=== PATIENT | female | born 2000 | race Caucasian/White ===

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

== ENCOUNTER 2019-05-25 13:39 | Emergency (ER) | payer BC, MEDICAID ==
[~2019-05-25] VITALS: Ht 175.3 cm; Wt 93.2 kg
[2019-05-25 13:42] VITALS: TEMP 98.4
[2019-05-25 14:31] LABS: COLLECTION METHOD CLEAN CATCH
[2019-05-25 14:36] LABS: BASO % 0.2 % (0.0-2.0); EOS % 0.2 % (0-4.0); GRAN # 10.9 (1.4-6.5); GRAN % 84.4 % (42.2-75.2); HEMATOCRIT 37.9 % (35.0-45.0); HEMOGLOBIN 12.6 g/dl (12.0-15.0); LYMPH # 1.1 (1.2-3.4); LYMPH % 8.8 % (20.0-51.0); MEAN CELL VOLUME 92 fl (80.0-95.0); MEAN CORPUSCULAR HEMOGLOBIN 31 pg (26.0-32.0); MEAN CORPUSCULAR HGB CONC 33 g/dl (33.0-37.0); MEAN PLATELET VOLUME 10.8 fl (7.4-10.4); MONO # 0.8 (0.1-0.6); MONO % 5.9 % (1.7-9.3); PLATELET COUNT 206 K/mm3 (130-400); RED BLOOD COUNT 4.12 M/mm3 (4.10-5.30); REDCELL DISTRIBUTION WIDTH-CV 13.2 % (11.5-14.5)
[2019-05-25 14:44] LABS: ALBUMIN 4.3 gm/dL (3.5-5.0); BILIRUBIN,TOTAL 0.5 mg/dL (0.0-1.0); CREATININE, serum 0.62 (0.52-1.25); POTASSIUM 3.5 mmol/L (3.4-5.0); TOTAL PROTEIN 7.5 gm/dL (6.4-8.2)
[2019-05-25 14:44] LABS: MUCOUS Present /lpf; PH 5 (5-8); URINE APPEARANCE Clear; URINE BACTERIA None Seen /hpf; URINE BILIRUBIN Negative (NEGATIVE); URINE BLOOD Negative (NEGATIVE); URINE COLOR Yellow; URINE GLUCOSE Negative (NEGATIVE); URINE KETONE 2+ (NEGATIVE); URINE LEUKOCYTE ESTERASE Negative (NEGATIVE); URINE NITRATE Negative (NEGATIVE); URINE PROTEIN(semi-quant) Negative (NEGATIVE); URINE RBC 0-2 /hpf; URINE UROBILINOGEN Negative (NEGATIVE)
[2019-05-25 14:57] LABS: STREP SCREEN NEGATIVE
[2019-05-25 15:49] VITALS: BP 118/78; PULSE 85
== END 2019-05-25 15:50 | disposition home or self-care (01) ==
LOC: COL.ER 13:39
PROVIDERS: Physician Assistant
DX: R10.84 Generalized abdominal pain (principal); G43.909 Migraine, unspecified, not intractable, without status migrainosus; J45.909 Unspecified asthma, uncomplicated; Z88.0 Allergy status to penicillin
CPT/HCPCS: J2405; J7030

== ENCOUNTER 2019-08-13 22:02 | Emergency (ER) | payer BC, MEDICAID ==
[~2019-08-13] VITALS: Ht 175.3 cm; Wt 98.6 kg
[2019-08-13 22:07] VITALS: TEMP 98.1
[2019-08-13] MEDS ORDERED: VITAMIN B100 CO1 TAB (22:24)
[2019-08-13] MEDS ORDERED: VITAMINC1000TA (22:24)
[2019-08-13] MEDS ORDERED: B-12 500 MCG PO (22:24)
[2019-08-13 22:29] VITALS: BP 114/85
[2019-08-13] MEDS ORDERED: CLEOCIN HCL300 MG PO (23:40)
[2019-08-13 23:49] VITALS: PULSE 108
== END 2019-08-13 23:53 | disposition home or self-care (01) ==
LOC: COL.ER 22:02
DX: O23.593 Infection of other part of genital tract in pregnancy, third trimester (principal); K61.0 Anal abscess; O99.513 Diseases of the respiratory system complicating pregnancy, third trimester; J45.909 Unspecified asthma, uncomplicated; Z88.0 Allergy status to penicillin; Z3A.32 32 weeks gestation of pregnancy

== ENCOUNTER 2019-09-04 12:44 | Outpatient (CLI) | payer BC, MEDICAID ==
[~2019-09-04] VITALS: Ht 175.3 cm; Wt 100.9 kg
[~2019-09-04 12:44] MED LIST changes: +B-12 500 MCG PO; +CLEOCIN HCL300 MG PO; +VITAMIN B100 CO1 TAB; +VITAMINC1000TA
--- NOTE | 2019-09-04 13:20 | NUR ---
PATIENT TO LR 5 AT THIS TIME. ON EFM, PATIENT STATES SHE FELL YESTERDAY ON KNEES, HAS NOT FELT OR HEARD BABY MOVE BY USING STETHESCOPE AT HOME. PATIENTS PULSE 120S-130S DR CAMPO NOTIFIED. PATIENT HAS PULSE OX ON FINGER. PATIENT DENIES LEAKING OF FLUID, BLEEDING OR CONTRACTIONS. FABIEN SNOW WITH PATIENT.
[2019-09-04 13:25] VITALS: BP 138/79; PULSE 133; TEMP 98.8
[2019-09-04 13:50] VITALS: BP 138/79; PULSE 133; TEMP 98.8
== END 2019-09-04 13:57 | disposition home or self-care (01) ==
LOC: LDRO 12:44 → LDR 13:28 → LDRO 13:28 → LDR 13:57
DX: O36.8130 Decreased fetal movements, third trimester, not applicable or unspecified (principal); Z3A.34 34 weeks gestation of pregnancy
CPT/HCPCS: OP

== ENCOUNTER 2019-10-07 20:00 | Outpatient (CLI) | payer BC, MEDICAID ==
[~2019-10-07] VITALS: Ht 175.3 cm; Wt 101.8 kg
--- NOTE | 2019-10-07 18:45 | NUR ---
Pt ambulatory to unit for assessment, accompanied by boyfriend. Pt reports "I think my water has been leaking for 15 hours" Oriented to room, monitor, plan of care. Questions invited and answered.
[2019-10-07 19:40] VITALS: BP 134/84; PULSE 84; TEMP 98.7
[2019-10-07 20:20] VITALS: TEMP 98.7
== END 2019-10-07 20:55 | disposition home or self-care (01) ==
LOC: LDRO 20:00
DX: O42.92 Full-term premature rupture of membranes, unspecified as to length of time between rupture and onset of labor (principal); Z3A.39 39 weeks gestation of pregnancy

== ENCOUNTER 2019-10-19 15:44 | Inpatient (IN) | payer BC, MEDICAID ==
[~2019-10-19] VITALS: Ht 175.3 cm; Wt 103.6 kg
[2019-10-19] VITALS (22 sets, daily range): BP systolic 117–133; BP diastolic 63–84; PULSE 64–90; TEMP 98.5–98.9
--- NOTE | 2019-10-19 16:45 | NUR ---
PT HERE FOR INDUCTION OF LABOR. FHT'S FOUND IN THE 135-140 RANGE WITH MODERATE VARIABILITY AND ACCELS. IV STARTED IN RIGHT WRIST WITH LR INFUSING WITHOUT DIFFICULT. PITOCIN STARTED AT 1625 AT 2MU PER ORDERS. PLAN OF CARE REVIEWED. CONSENTS SIGNED. PT REPORTS SHE DOES NOT WANT AN EPIDURAL FOR ANY REASON AT ALL. 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 ALSO REFUSES A SPINAL. EXPLAINED TO PT IF SHE NEEDS A IT WOULD HAVE TO BE UNDER GENERAL ANESTHESIA AND SHE STATES THAT A SPINAL WOULD NOT WORK ON HER BECAUSE "NO LOCAL MEDICATION WORKS, IT HAS THE OPPOSITE EFFECT ON ME CAUSING WORSE PAIN." WANTS TO EAT AND EXPLAINED SHE IS NPO ESPECIALLY WITH THE NEED FOR GENERAL ANESTHESIA IF A IS NEEDED. TOLD HER SHE CAN HAVE SMALL SIPS OF CLEAR LIQUIDS ONLY. ASSESSMENT COMPLETED.
--- NOTE | 2019-10-19 17:15 | NUR ---
DR RICCI CALLED TO CHECK ON PT. UPDATE GIVEN: IV STARTED, PITOCIN AT 6MU AT TIME OF CALL. SHE IS COMING OVER TO BREAK PT'S WATER. PT NOTIFIED. APPLE JUICE GIVEN TO PT.
[2019-10-19 17:23] LABS: BASO % 0.2 % (0.0-2.0); EOS % 0.3 % (0-4.0); GRAN # 8.1 (1.4-6.5); GRAN % 70.5 % (42.2-75.2); HEMATOCRIT 39.2 % (35.0-45.0); HEMOGLOBIN 13.1 g/dl (12.0-15.0); LYMPH # 2.6 (1.2-3.4); LYMPH % 22.4 % (20.0-51.0); MEAN CELL VOLUME 91 fl (80.0-95.0); MEAN CORPUSCULAR HEMOGLOBIN 30 pg (26.0-32.0); MEAN CORPUSCULAR HGB CONC 33 g/dl (33.0-37.0); MEAN PLATELET VOLUME 11.1 fl (7.4-10.4); MONO # 0.7 (0.1-0.6); MONO % 6.2 % (1.7-9.3); PLATELET COUNT 254 K/mm3 (130-400); RED BLOOD COUNT 4.33 M/mm3 (4.10-5.30)
--- NOTE | 2019-10-19 18:00 | NUR ---
DR RICCI HERE AT 1754. PERFORMS SVE /-2 AND AROM WITH CLEAR FLUID AT 1755. PT AGAIN TELLS DR RICCI SHE WILL NOT DO AN EPIDURAL FOR PAIN RELIEF. FHT'S WITH BASELINE CHANGE TO 135 AT 1748 AND ANOTHER CHANGE AT 1756 AFTER AROM BACK TO PREVIOUS BASELINE OF 145
--- NOTE | 2019-10-19 18:20 | NUR ---
Standing @ bedside, asks "can I stay out of the bed?" Explained to pt that we need to be able to monitor the baby. If we can keep a decent tracing on the baby , she could stand @ bedside or use the birthing ball. Birthing ball provided.
--- NOTE | 2019-10-19 19:10 | NUR ---
Pt standing at bedside, leaning forward on bed, shifting from side to side, crying. Encouraged to slow breathing down, tried coaching to pattern breathe. Mother supportive at bedside, also trying to work with pt. Discussed IV pain medication. Requests IV pain medication @ this time.
--- NOTE | 2019-10-19 19:17 | NUR ---
0.5mg Stadol, slow IV push, per pt request for pain. 192 0.5mg Stadol for continued pain, Pt crying. 100cc emesis.
--- NOTE | 2019-10-19 20:02 | NUR ---
Sangeeta INSURANCE VERIFICATION SPECIALIST into room for epidural placement, see anesthesia record.
[2019-10-20] VITALS (19 sets, daily range): BP systolic 111–134; BP diastolic 58–77; PULSE 58–91; TEMP 97.7–98.3
--- NOTE | 2019-10-20 01:44 | NUR ---
FHT'S TO 100'S, position changes, IV fluids, SVE Rim. FHT's to 120's. Deceleration time 5 minutes.
--- NOTE | 2019-10-20 02:25 | NUR ---
Dr Dao into room. SVE, pushing instructions given.
--- NOTE | 2019-10-20 03:00 | NUR ---
Pushing well. FHT's to 90's with pushing returns to baseline after contraction/pushing. Dr Dao continues in room, coaches pushing.
--- NOTE | 2019-10-20 03:50 | NUR ---
Female delivered by Dr Dao.
--- NOTE | 2019-10-20 03:56 | NUR ---
placenta delivers spont and intact with 3 vessell cord. Pitocin gtt to bolus rate. [address] Dao, with small amount yellow urine.
--- NOTE | 2019-10-20 04:00 | NUR ---
Perineal repair complete. Pericare completed, ice pack to perineum, bed together.
--- NOTE | 2019-10-20 05:45 | NUR ---
Epidural dc'd, IV to INT, Up to bathroom with steady gait, voids good amount, performs own pericare after instruction. Clean gown on, Ambulates to room.
--- NOTE | 2019-10-20 07:15 | NUR ---
Rests in bed, alert. baby with the help of this nurse.
[2019-10-21 07:22] VITALS: BP 117/66; PULSE 77; TEMP 98.3
[2019-10-21] MEDS ORDERED: MOTRIN 800800 MG/TAB PO (08:55)
--- NOTE | 2019-10-21 10:00 | NUR ---
1000-Reviewed discharghe instructions with patient. Verbalized understanding and denies questions. 1055-Escorted to car via wheelchair carrying to put in to staionary car seat.
== END 2019-10-21 10:55 | disposition home or self-care (01) | DRG 806 ==
LOC: OB 15:44 → LDR 15:45 → OB 15:45
PROVIDERS: ADMIT Student in an Organized Health Care Education/Training Program
PROC: 10E0XZZ Delivery of Products of Conception, External Approach (ICD-10-PCS; principal; 2019-10-19)
PROC: 10907ZC Drainage of Amniotic Fluid, Therapeutic from Products of Conception, Via Natural or Artificial Opening (ICD-10-PCS; 2019-10-19)
PROC: 0UQGXZZ Repair Vagina, External Approach (ICD-10-PCS; 2019-10-19)
DX: O48.0 Post-term pregnancy (principal); O99.354 Diseases of the nervous system complicating childbirth; Z37.0 Single live birth; O71.4 Obstetric high vaginal laceration alone; O36.63X0 Maternal care for excessive fetal growth, third trimester, not applicable or unspecified; O99.214 Obesity complicating childbirth; E66.9 Obesity, unspecified; O99.52 Diseases of the respiratory system complicating childbirth; O99.344 Other mental disorders complicating childbirth; J45.909 Unspecified asthma, uncomplicated; G43.909 Migraine, unspecified, not intractable, without status migrainosus; F41.9 Anxiety disorder, unspecified; Z3A.40 40 weeks gestation of pregnancy
CPT/HCPCS: J0595; J2400; J2590; J2795; J7120

== ENCOUNTER 2023-10-17 10:17 | Emergency (ER) | payer BC ==
[~2023-10-17] VITALS: Ht 172.7 cm; Wt 113.6 kg
[~2023-10-17 10:17] MED LIST changes: +MOTRIN 800800 MG/TAB PO
[2023-10-17 10:32] VITALS: TEMP 98.4
[2023-10-17] MEDS ORDERED: Ibuprofen 600 MG TAB PO ONE (11:00)
[2023-10-17 11:07] LABS: COLLECTION METHOD CLEAN CATCH
[2023-10-17 11:13] LABS: URINE APPEARANCE CLEAR (CLEAR/HAZY); URINE BLOOD NEGATIVE (NEGATIVE); URINE COLOR YELLOW (YELLOW); URINE GLUCOSE NEGATIVE (NEGATIVE); URINE KETONE TRACE (NEGATIVE); URINE NITRATE NEGATIVE (NEGATIVE); URINE PROTEIN(semi-quant) NEGATIVE (NEGATIVE)
[2023-10-17 12:14] LABS: BASO % 0.2 % (0.0-2.0); EOS # 0.1 K/mm3 (0.0-0.7); EOS % 0.6 % (0.0-4.0); GRAN # 6.7 K/mm3 (1.4-6.5); HEMATOCRIT 41.2 % (37.0-47.0); HEMOGLOBIN 13.8 g/dl (12.5-16.0); LYMPH # 2.6 K/mm3 (1.2-3.4); LYMPH % 26.4 % (20.0-51.0); MEAN CELL VOLUME 90 fl (80.0-100.0); MEAN CORPUSCULAR HEMOGLOBIN 30 pg (27-31); MEAN CORPUSCULAR HGB CONC 34 g/dl (33.0-37.0); MONO # 0.4 K/mm3 (0.1-0.6); MONO % 4.4 % (1.7-9.3); PLATELET COUNT 256 K/mm3 (130-400); RED BLOOD COUNT 4.59 M/mm3 (4.10-5.30); REDCELL DISTRIBUTION WIDTH-CV 12.9 % (11.5-14.5)
[2023-10-17 12:31] LABS: BILIRUBIN,TOTAL 0.4 mg/dL (0.2-1.2); C-REACTIVE PROTEIN 0.64 mg/dL (0.00-0.50); CALCIUM 9.2 mg/dL (8.4-10.2); CREATININE, serum 0.89 mg/dL (0.57-1.11); POTASSIUM 4.3 mEq/L (3.5-4.5); TOTAL PROTEIN 7.2 g/dl (6.2-8.1)
[2023-10-17] MEDS ORDERED: Iohexol 300 - 100 ML VIAL IV ONE (13:59)
[2023-10-17] MEDS ORDERED: NS 100 ML IV ONE (14:00)
[2023-10-17 15:29] VITALS: BP 118/67; PULSE 76
== END 2023-10-17 15:29 | disposition home or self-care (01) ==
LOC: COL.ER 10:17
PROVIDERS: Nurse Practitioner
DX: N83.201 Unspecified ovarian cyst, right side (principal)
CPT/HCPCS: Q9967

== ENCOUNTER 2023-11-01 14:06 | Emergency (ER) | payer BC ==
[~2023-11-01] VITALS: Ht 172.7 cm; Wt 113.6 kg
[2023-11-01 14:11] VITALS: BP 119/72; TEMP 97.8
[2023-11-01] MEDS ORDERED: BACTROBAN 22GM22 GM TP (14:36)
[2023-11-01] MEDS ORDERED: BACTRIM DS 8001 TAB PO (14:36)
[2023-11-01 14:50] VITALS: PULSE 74
== END 2023-11-01 14:50 | disposition home or self-care (01) ==
LOC: COL.ER 14:06
DX: L02.411 Cutaneous abscess of right axilla (principal); Z88.0 Allergy status to penicillin